=== PATIENT | male | born 1950 | race Hispanic/Latino ===

== ENCOUNTER → 2024-02-06 | Outpatient (CLI) | payer OTHER ==
[2024-02-06 13:58] LABS: CREATININE 0.7 mg/dL (0.5-1.3); POTASSIUM 4.6 mmol/L (3.5-5.1)
== END | disposition home or self-care (01) ==
LOC: LAB 12:31
PROVIDERS: ATTEND Internal Medicine Cardiovascular Disease
DX: I10 Essential (primary) hypertension (principal); I65.21 Occlusion and stenosis of right carotid artery; H34.232 Retinal artery branch occlusion, left eye
CPT/HCPCS: 36415; 80048

== ENCOUNTER → 2024-02-13 | Outpatient (CLI) | payer OTHER ==
[~2024-02-13] MED LIST: IOHEXOL-350 75 ML VIAL IV ONE
--- NOTE | 2024-02-13 11:50 | HMCIMG ---
CT ANGIO HEAD AND NECK HISTORY: Retinal artery occlusion COMPARISON: None TECHNIQUE: CT angiography of the head was performed. The study was performed using angiographic technique with maximum intensity projection reconstruction images. Patient was given cc of Omnipaque through intravenous route. FINDINGS: The ventricles and extraventricular CSF spaces are nondilated for patient's age. There is no midline shift, mass effect or herniation. No acute intracranial bleed is seen. Visualized portion of the paranasal sinuses are grossly within normal limits. No CT evidence of cerebral aneurysm or abnormal arteriovenous communication is seen. Diffuse atherosclerosis changes are present. Vertebrobasilar arterial system is grossly within normal limits. IMPRESSION: CTA Head 1. Atherosclerotic disease. Otherwise unremarkable CTA of the brain. TECHNIQUE: CT angiography of the neck was performed. The study was performed using angiographic technique with maximum intensity projection reconstruction images. FINDINGS: There are degenerative changes of the cervical spine. Parapharyngeal fat planes are preserved bilaterally. The airway is patent. Thyroid gland is enlarged. Visualized portion of the lung apices are unremarkable. The common, internal and external carotid arteries are visualized. No hemodynamically significant lesion is seen of either extracranial carotid artery system. Both vertebral arteries are seen with antegrade flow. IMPRESSION: CTA Neck 1. Atherosclerotic disease. No hemodynamically significant lesion is seen of either extracranial carotid artery system. CT was performed with one or more following dose reduction techniques: automated exposure control, adjustment of the mA and kv according to patient's size, or use of a iterative reconstruction technique.
== END | disposition home or self-care (01) ==
LOC: RAH 08:30 → EDUNIT# 10:30
PROVIDERS: ATTEND Internal Medicine Cardiovascular Disease
DX: H34.239 Retinal artery branch occlusion, unspecified eye (principal); I65.29 Occlusion and stenosis of unspecified carotid artery; I70.90 Unspecified atherosclerosis; M47.812 Spondylosis without myelopathy or radiculopathy, cervical region; E04.9 Nontoxic goiter, unspecified
CPT/HCPCS: 70496; 70498; Q9967

== ENCOUNTER 2024-04-15 07:46 | Day surgery (SDC) | payer OTHER ==
[2024-04-12 14:34] LABS: BASOPHILS # (AUTO) 0.05 K/uL (0.00-0.20); BASOPHILS % (AUTO) 1.1 % (0.0-5.0); EOSINOPHILS # (AUTO) 0.11 K/uL (0.00-0.70); EOSINOPHILS % (AUTO) 2.4 % (0.0-8.0); HEMATOCRIT 44.1 % (42-54); IMMATURE GRANULOCYTE ABSOLUTE 0.01 K/uL (0-1); LYMPHOCYTES # (AUTO) 1.6 K/uL (1.0-4.8); LYMPHOCYTES % (AUTO) 34.4 % (21.0-51.0); MEAN CORPUSCULAR HEMOGLOBIN 30.1 pg (27.0-33.0); MEAN CORPUSCULAR HGB CONC 33.3 g/dL (32.0-36.0); MEAN CORPUSCULAR VOLUME 90.2 fL (79-99); MONOCYTES # (AUTO) 0.5 K/uL (0.1-1.0); MONOCYTES % (AUTO) 9.9 % (3.0-13.0); NEUTROPHILS # (AUTO) 2.4 K/uL (1.8-7.7); PLATELET COUNT (AUTO) 176 K/uL (130-400); RED BLOOD CELL COUNT(AUTO) 4.89 MIL/uL (4.50-6.20); RED CELL DISTRIBUTION WIDTH 12.8 % (11.0-15.5); WHITE BLOOD COUNT (AUTO) 4.7 K/uL (4.8-10.8)
[2024-04-12 14:49] LABS: APPEARANCE,URINE CLEAR (CLEAR); BILIRUBIN,URINE NEGATIVE (NEGATIVE); COLOR,URINE LIGHT-YELLOW (YELLOW); GLUCOSE, URINE (UA) >=1000 mg/dL (NEGATIVE); KETONES,URINE NEGATIVE (NEGATIVE); LEUKOCYTE ESTERASE ,URINE NEGATIVE Leu/uL (NEGATIVE); NITRATE,URINE NEGATIVE (NEGATIVE); OCCULT BLOOD,URINE NEGATIVE (NEGATIVE); PROTEIN,URINE NEGATIVE (NEGATIVE); UROBILINOGEN,URINE 0.2 mg/dL (0.2-1.0)
[2024-04-12 14:57] VITALS: BP 118/53; PULSE 65; RESP 18; TEMP 97
[2024-04-12 14:57] LABS: INR 0.97 (0.85-1.15); PROTHROMBIN TIME 10.9 SEC (9.6-11.6)
[2024-04-12 14:59] LABS: PARTIAL THROMBOPLASTIN TIME 29.3 SEC (26.3-35.5)
[2024-04-12 15:01] LABS: ADD UA MICROSCOPIC YES
[2024-04-12 15:01] LABS: CREATININE 0.7 mg/dL (0.5-1.3); POTASSIUM 4.3 mmol/L (3.5-5.1)
--- NOTE | 2024-04-12 15:03 | HMCIMG ---
CHEST 1VW REASON: PRE OP COMPARISON: None. FINDINGS: Single view of the chest was obtained. Lungs are clear. Heart size is normal. There is no pulmonary vascular congestion. Mediastinum and bony thorax appear unremarkable. No previous median sternotomy. IMPRESSION: 1. No acute process seen in the chest.
[2024-04-12 15:06] LABS: B-TYPE NATRIURETIC PEPTIDE 18 pg/mL (0-100)
[2024-04-12 15:42] LABS: RBC,URINE 0-1 /HPF (0-1)
--- NOTE | 2024-04-12 19:06 | EKG ---
[facility] Test Date: 2024-04-12 Test Time: 15:16:27 Pat Name: BRIAN SANTOYO Department: ON LICENSE OF [facility] Room: Gender: M Research Assistant Member: [id number] : 1950 Requested By: ZEN VALLEJO Order Number: [id number] Reading MD: Zen Vallejo Measurements Intervals [place] Rate: 64 P: 52 IL: 194 QRS: -21 QRSD: 92 T: 59 QT: 397 QTc: 410 Interpretive Statements Sinus rhythm No previous ECG available for comparison Electronically Signed On 04-13-2024 08:00:44 [employer] by Zen Vallejo Please click the below link to view image of tracing.
[2024-04-15] VITALS (7 sets, daily range): BP systolic 103–123; BP diastolic 50–57; PULSE 59–67; RESP 13–18; TEMP 97–97.9
[~2024-04-15] VITALS: Ht 160 cm; Wt 63.2 kg
[~2024-04-15 07:46] MED LIST changes: +ASCO100031 PO; +ASPI-1443 PO; +COQ10 PO; +DIPH-764 PO; +EMPA25TA PO; +FOLI0.8C PO; +GLUCOSAMINE/CHOND PO; -IOHEXOL-350 75 ML VIAL IV ONE; +LISI20TA24 PO; +METF-444 PO; +METO50TA18 PO; +MULT-1259 PO; +SIMV-46 PO; +VITAMIN B12 PO
[2024-04-15] MEDS: 0.9%NACL 1000ML 1,000 ML IV SCH (08:39)
[2024-04-15] MEDS ORDERED: SODIUM BICARB 50MEQ 50ML VIAL 50 ML ONE (08:54)
[2024-04-15] MEDS ORDERED: IOHEXOL 350 MG/ML 100ML INFUS..BTL IV ONE (08:54)
[2024-04-15] MEDS ORDERED: HEParin 10,000 UNIT/10ML (1,000 UNIT/ML) VIAL ONE (08:54)
[2024-04-15] MEDS ORDERED: LIDOCAINE HCL 400MG/20ML VIAL ONE (08:54)
[2024-04-15] MEDS ORDERED: HEParin-NS 1,000 UNIT/500 ML 1,000 ML IV ONE (08:55)
[2024-04-15] MEDS ORDERED: NITROGLYCERIN 50MG VIAL ONE (08:55)
[2024-04-15] MEDS ORDERED: FENTanyl CITRate PF 50 MCG/1 ML 2ML VIAL ONE (09:30)
[2024-04-15] MEDS ORDERED: MIDAZOLAM HCL 1 MG/ML 2ML VIAL ONE (09:30)
[2024-04-15] MEDS ORDERED: 0.9% NACL 500ML IV.SOLN 500 ML IV SCH (10:00)
--- NOTE | 2024-04-15 12:18 | NUR ---
Full and complete discharge instructions given to Patient and Family both verbally and in writing. Explained Cardiac Catheterization procedure precautions and follow up. Femoral site soft, dry with no evidence of bleeding or bruising. No hematoma present. All questions answered. PIV removed with catheter tip intact. Home with Friend W/C to POV.
--- NOTE | 2024-04-25 15:12 | PRN ---
Bilateral Cerebral Arteriogram Indication: Noninvasive evidence of 70-80% bilateral carotid stenosis Technique: Patient was brought to the lab in a fasting state and sedated with 1 mg Versed and 50 mcg fentanyl. Under local anesthesia using 1% lidocaine with micropuncture technique as guided by fluoroscopic and ultrasound the right common femoral was punctured anteriorly and a six [place] sheath was inserted. A Crawford one catheter was used to engage the right common carotid and common carotid/bifurcation angiogram was obtained using digital subtraction technique. We then performed angiograms including the carotid bifurcation to the tip of the cranium in AP, SHORE, right lateral, and [place] projections. We then engaged the left common carotid and obtained a common carotid/bifurcation angiogram in AP projection. We then performed angiography on the distal common carotid to the tip of the cranium in AP, [place], left lateral and SHORE projections. We then removed the catheter and obtained hemostasis by Perclose. No complications occurred. Patient received 80 mL contrast. Is transferred from the lab in stable condition. Results: Right common carotid is free of disease until the carotid bulb where there is a bifurcation lesion compromising the internal carotid by 40% and the external carotid by 60%. This is a heavily calcified lesion. It does not appear hemodynamically significant. There is no right sided intracranial disease demonstrated. The left common carotid is notable for a heavily calcified eccentric plaque spanning from the distal common carotid into the internal carotid, narrowing the internal carotid by about 60%. The external carotid is relatively unaffected. There is no left-sided intracranial disease detected. Conclusions: Mild right internal carotid disease, mild to moderate left internal carotid disease. JUDY VALLEJO MD Apr 25, 2024 15:12
== END 2024-04-15 12:20 | disposition home or self-care (01) ==
LOC: DAH 07:46
PROVIDERS: ATTEND Internal Medicine Cardiovascular Disease
DX: I65.23 Occlusion and stenosis of bilateral carotid arteries (principal); I10 Essential (primary) hypertension; E11.9 Type 2 diabetes mellitus without complications; H34.232 Retinal artery branch occlusion, left eye; E66.9 Obesity, unspecified; E78.5 Hyperlipidemia, unspecified; Z79.84 Long term (current) use of oral hypoglycemic drugs; Z79.899 Other long term (current) drug therapy; Z79.82 Long term (current) use of aspirin; Z95.1 Presence of aortocoronary bypass graft; Z68.23 Body mass index [BMI] 23.0-23.9, adult
CPT/HCPCS: 80048; 83880; 85025; 85610; 85730; 81001; 36415; 71045; 93005; 36223; 82948; A4223 ×3; C1894 ×2; C1760; C1887; Q9965; J3010; J3490 ×3; J2250; J1644; Q9967; A4215; A4222; A4221; A4663; A4216; A4606; 96360; 96361; 99156; 99157

== ENCOUNTER → 2024-07-23 | Outpatient (CLI) | payer OTHER ==
[2024-07-23 12:04] LABS: BASOPHILS # (AUTO) 0.05 K/uL (0.00-0.20); BASOPHILS % (AUTO) 1.1 % (0.0-5.0); EOSINOPHILS # (AUTO) 0.17 K/uL (0.00-0.70); EOSINOPHILS % (AUTO) 3.8 % (0.0-8.0); HEMATOCRIT 41.6 % (42-54); IMMATURE GRANULOCYTE ABSOLUTE 0.01 K/uL (0-1); LYMPHOCYTES # (AUTO) 1.4 K/uL (1.0-4.8); LYMPHOCYTES % (AUTO) 30.5 % (21.0-51.0); MEAN CORPUSCULAR HEMOGLOBIN 30.2 pg (27.0-33.0); MEAN CORPUSCULAR HGB CONC 32.7 g/dL (32.0-36.0); MEAN CORPUSCULAR VOLUME 92.2 fL (79-99); MONOCYTES # (AUTO) 0.3 K/uL (0.1-1.0); MONOCYTES % (AUTO) 7.7 % (3.0-13.0); NEUTROPHILS # (AUTO) 2.5 K/uL (1.8-7.7); NEUTROPHILS % (AUTO) 56.7 % (40.0-77.0); PLATELET COUNT (AUTO) 151 K/uL (130-400); RED BLOOD CELL COUNT(AUTO) 4.51 MIL/uL (4.50-6.20); RED CELL DISTRIBUTION WIDTH 13.6 % (11.0-15.5); WHITE BLOOD COUNT (AUTO) 4.4 K/uL (4.8-10.8)
[2024-07-23 12:11] LABS: ALBUMIN 4.2 g/dL (3.5-5.0); BILIRUBIN,TOTAL 0.7 mg/dL (0.2-1.0); CREATININE 0.7 mg/dL (0.5-1.3); POTASSIUM 4.7 mmol/L (3.5-5.1)
== END | disposition home or self-care (01) ==
LOC: LAB 09:00
PROVIDERS: ATTEND Internal Medicine Cardiovascular Disease
DX: I10 Essential (primary) hypertension (principal); E78.5 Hyperlipidemia, unspecified; E11.59 Type 2 diabetes mellitus with other circulatory complications
CPT/HCPCS: 36415; 80053; 80061; 85025